=== PATIENT | male | born 1975 | race Caucasian/White ===

== ENCOUNTER 2017-09-27 00:10 | Emergency (ER) | payer BC ==
[2017-09-27 00:30] VITALS: BP 113/62; PULSE 79; TEMP 97.8; BMI 29.5
--- NOTE | 2017-09-27 00:30 | PDOC ---
History of Present Illness - General Chief Complaint: Cold Symptoms Stated Complaint: BODYACHE,COUGHING Time Seen by Provider: 09/27/17 00:28 History Source: Patient Exam Limitations: No Limitations - History of Present Illness Initial Comments: 09/27/17 00:37 42-year-old male with no medical history presents to the emergency department complaining of subjective fever, chills, sore throat, body ache 3 weeks which subsided then again x3d ago. Patient described it as getting run over by a large truck feeling. Patient denies any headache, dizziness, lightheadedness, ear pain, facial pain, difficulty swallowing/eating, neck pain, neck stiffness, back pains, chest pain, shortness of breath, abdominal pains, flank pain, urinary symptoms. 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 Patient states he eats pretty often but hasn't been drinking enough fluids. Past History - Past Medical History Allergies/Adverse Reactions: Allergies Allergy/AdvReac Type Severity Reaction Status Date / Time No Known Allergies Allergy Verified 09/27/17 00:25 Home Medications: Ambulatory Orders NK [No Known Home Medication] 09/27/17 - Suicide/Smoking/Psychosocial Hx Smoking History: Never smoked Have you smoked in the past 12 months: No Information on smoking cessation initiated: No Hx Alcohol Use: No Drug/Substance Use Hx: No Review of Systems - Review of Systems Able to Perform ROS?: Yes Comments:: 09/27/17 00:29 CONSTITUTIONAL: +generalized weakness, malaise, chills Absent: fever, diaphoresis, loss of appetite HEENT: Absent: rhinorrhea, nasal congestion, throat pain, throat swelling, difficulty swallowing, mouth swelling, ear pain, eye pain, visual Changes CARDIOVASCULAR: Absent: chest pain, loss of consciousness, palpitations, irregular heart rate, peripheral edema RESPIRATORY: Absent: cough, shortness of breath, dyspnea with exertion, orthopnea, wheezing, stridor, hemoptysis GASTROINTESTINAL: Absent: abdominal pain, abdominal distension, nausea, vomiting, diarrhea, constipation, melena, hematochezia GENITOURINARY: Absent: dysuria, frequency, urgency, hesitancy, hematuria, flank pain, genital pain MUSCULOSKELETAL: Absent: myalgia, arthralgia, joint swelling SKIN: Absent: rash, itching, pallor HEMATOLOGIC/IMMUNOLOGIC: Absent: easy bleeding, easy bruising, lymphadenopathy, frequent infections ENDOCRINE: Absent: unexplained weight gain, unexplained weight loss, heat intolerance, cold intolerance NEUROLOGIC: Absent: headache, focal weakness or paresthesias, dizziness, unsteady gait, seizure, mental status changes, bladder or bowel incontinence Is the patient limited Danish proficient: No *Physical Exam - Vital Signs Last Vital Signs Temp Pulse Resp BP Pulse Ox 97.8 F 79 14 113/62 96 09/27/17 00:25 09/27/17 00:25 09/27/17 00:25 09/27/17 00:25 09/27/17 00:25 - Physical Exam Comments: 09/27/17 00:30 GENERAL: Well developed, well nourished. Awake and alert. No acute distress. HEENT: Normocephalic, atraumatic. PERRLA, EOMI. No conjunctival pallor. Sclera are non- icteric. Moist mucous membranes. Oropharynx is clear. NECK: Supple. Full ROM. No JVD. Carotid pulses 2+ and symmetric, without bruits. No thyromegaly. No lymphadenopathy. CARDIOVASCULAR: Regular rate and rhythm. No murmurs, rubs, or gallops. Distal pulses are 2+ and symmetric. PULMONARY: No evidence of respiratory distress. Lungs clear to auscultation bilaterally. No wheezing, rales or rhonchi. ABDOMINAL: Soft. Non-tender. Non-distended. No rebound or guarding. No organomegaly. Normoactive bowel sounds. MUSCULOSKELETAL Normal range of motion at all joints. No bony deformities or tenderness. No CVA tenderness. EXTREMITIES: No cyanosis. No clubbing. No edema. No calf tenderness. SKIN: Warm and dry. Normal capillary refill. No rashes. No jaundice. NEUROLOGICAL: Alert, awake, appropriate. Cranial nerves 2-12 intact. No deficits to light touch and temperature in face, upper extremities and lower extremities. No motor deficits in the in face, upper extremities and lower extremities. Normoreflexic in the upper and lower extremities. Normal speech. Toes are down- going bilaterally. Gait is normal without ataxia. PSYCHIATRIC: Cooperative. Good eye contact. Appropriate mood and affect. *DC/Admit/Observation/Transfer Diagnosis at time of Disposition: Influenza A (H1N1) - Discharge Dispostion Disposition: HOME Condition at time of disposition: Stable Admit: No - Referrals Referrals: Jimbo Lincoln [Primary Care Provider] - - Patient Instructions Printed Discharge Instructions: DI for Influenza -- Adult Additional Instructions: Be sure to drink lots of water Take tylenol or motrin as needed for fever/pain Rest Rest Rest Follow up with your physician Your symptoms started three days ago and therefore is too late to treat you for influenza Return to the ER for severe/persistent/worsening symptoms - Post Discharge Activity
[2017-09-27] MEDS ORDERED: SODIUM CHLORIDE 1,000 ML IV STA (00:47)
--- NOTE | 2017-09-29 08:37 | PDOC ---
Patient Follow-up (Call Back) - Post ED Follow - Up Condition at time of discharge: Stable Disposition at time of original discharge: HOME Reason for Call Back: Abnwl. Microbiology (Throat culture shows ending organism quantity very rare. Patient will await final report. Patient currently on no antibiotics nor given at antibiotics in the ER.)
== END 2017-09-27 01:44 | disposition home or self-care (01) ==
LOC: JER 00:10
PROC: 3E0337Z Introduction of Electrolytic and Water Balance Substance into Peripheral Vein, Percutaneous Approach (ICD-10-PCS; principal; 2017-09-27)
DX: J10.1 Influenza due to other identified influenza virus with other respiratory manifestations (principal)
CPT/HCPCS: 87070; 87077; 87430; 87804; 99281-25